=== PATIENT | male | born 1980 | race Caucasian/White ===

== ENCOUNTER 2022-01-26 09:10 | Inpatient (IN) | payer OTHER ==
[2022-01-26 09:59] VITALS: BMI 30.1
[2022-01-26] MEDS ORDERED: ACETAMINOPHEN 325 MG TABLET (FP) PO PRN ×2 (10:01)
[2022-01-26] MEDS ORDERED: ONDANSETRON *ODT* 4 MG TABLET SL PRN (10:01)
[2022-01-26] MEDS ORDERED: DICYCLOMINE HCL 10 MG CAPSULE PO PRN (10:01)
[2022-01-26] MEDS ORDERED: BUPRENORPHINE HCL 150 MCG, BUPRENORPHINE HCL 75 MCG BC PRN (10:01)
[2022-01-26] MEDS ORDERED: LOPERAMIDE HCL 2 MG CAPSULE PO PRN (10:01)
[2022-01-26] MEDS ORDERED: MAG HYDROX/AL HYDROX/SIMETH 30 ML UNIT-DOSE CUP PO PRN (10:01)
[2022-01-26] MEDS ORDERED: MAGNESIUM CITRATE 300 ML BOTTLE PO PRN (10:01)
[2022-01-26] MEDS ORDERED: BENZOCAINE/MENTHOL (CHLORASEPTIC ) LOZENGE MM PRN (10:01)
[2022-01-26] MEDS ORDERED: IBUPROFEN 400 MG TABLET (FP) PO PRN (10:01)
[2022-01-26] MEDS ORDERED: BISMUTH SUBSALICYLATE 524 MG/30 ML PO PRN (10:01)
[2022-01-26] MEDS ORDERED: MAGNESIUM HYDROX 2400MG/30ML ORAL SUSPENSION 30 ML CUP PO PRN (10:01)
[2022-01-26] MEDS: THIAMINE HCL 100 MG TABLET (FP) PO SCH (10:09)
[2022-01-26] MEDS ORDERED: BUPRENORPHINE HCL 150 MCG FILM BC ONE (10:22)
[2022-01-26] MEDS ORDERED: BUPRENORPHINE HCL 75 MCG FILM BC ONE (10:22)
[2022-01-26] MEDS: NICOTINE 7 MG/24 HOURS TOPICAL PATCH TD SCH (10:28)
[2022-01-26] MEDS ORDERED: BUPRENORPHINE HCL 150 MCG, BUPRENORPHINE HCL 75 MCG BC ONE (10:30)
[2022-01-26] MEDS ORDERED: cloNIDine HCL 0.1 MG TABLET PO ONE (10:30)
[2022-01-26] MEDS: METHOCARBAMOL 500 MG TABLET PO PRN (11:43)
[2022-01-26] MEDS: PRENATAL VITAMINS W/ FOLIC ACID TABLET (FP) PO SCH (11:43)
[2022-01-26] MEDS: IBUPROFEN 600 MG TABLET (FP) PO PRN (11:43)
[2022-01-26] MEDS: hydrOXYzine PAMOATE 25 MG CAPSULE (FP) PO SCH ×3 (13:47→22:08)
[2022-01-26] MEDS: diazePAM 5 MG TABLET PO PRN (13:48)
[2022-01-26] MEDS ORDERED: cloNIDine HCL 0.1 MG TABLET PO PRN (14:01)
[2022-01-26] MEDS: NICOTINE 10 MG CARTRIDGE (INHALER) IH PRN ×2 (14:48→22:11)
[2022-01-26] MEDS ORDERED: MELATONIN 5 MG TABLETS PO SCH (22:00)
[2022-01-26] MEDS: SUVOREXANT 10 MG TABLET PO PRN (22:09)
[2022-01-27] MEDS ORDERED: BUPRENORPHINE HCL 150 MCG, BUPRENORPHINE HCL 75 MCG BC PRN
[2022-01-27] MEDS ORDERED: BUPRENORPHINE HCL 150 MCG FILM BC ONE ×2 (04:39→17:12)
[2022-01-27] MEDS ORDERED: BUPRENORPHINE HCL 75 MCG FILM BC ONE ×2 (04:40→17:13)
[2022-01-27] MEDS: hydrOXYzine PAMOATE 25 MG CAPSULE (FP) PO SCH ×5 (05:29→22:27)
[2022-01-27] MEDS: BUPRENORPHINE HCL 150 MCG, BUPRENORPHINE HCL 75 MCG BC SCH ×2 (05:29→17:59)
[2022-01-27] MEDS: diazePAM 5 MG TABLET PO PRN ×3 (07:49→19:01)
[2022-01-27] MEDS: METHOCARBAMOL 500 MG TABLET PO PRN ×2 (10:27→22:27)
[2022-01-27] MEDS: NICOTINE 7 MG/24 HOURS TOPICAL PATCH TD SCH (10:27)
[2022-01-27] MEDS: PRENATAL VITAMINS W/ FOLIC ACID TABLET (FP) PO SCH (10:27)
[2022-01-27] MEDS ORDERED: ALBUTEROL SO4 HFA INHALER IH PRN (15:10)
[2022-01-27] MEDS: THIAMINE HCL 100 MG TABLET (FP) PO SCH (22:27)
[2022-01-27] MEDS: SUVOREXANT 10 MG TABLET PO PRN (22:28)
[2022-01-28] MEDS: diazePAM 5 MG TABLET PO PRN ×4 (02:35→23:41)
[2022-01-28] MEDS: hydrOXYzine PAMOATE 25 MG CAPSULE (FP) PO SCH ×5 (05:11→22:24)
[2022-01-28] MEDS: BUPRENORPHINE HCL 450 MCG FILM BC SCH ×2 (05:11→17:31)
[2022-01-28] MEDS: PRENATAL VITAMINS W/ FOLIC ACID TABLET (FP) PO SCH (10:17)
[2022-01-28] MEDS: METHOCARBAMOL 500 MG TABLET PO PRN (10:17)
[2022-01-28] MEDS: NICOTINE 7 MG/24 HOURS TOPICAL PATCH TD SCH (10:18)
[2022-01-28] MEDS ORDERED: diazePAM 5 MG TABLET PO SCH (10:30)
[2022-01-28 11:49] LABS: HEMATOCRIT 42.8 % (35.4-49); HEMOGLOBIN 14.7 GM/dL (11.7-16.9); MCH 29.7 pg (25.7-33.7); MCHC 34.4 g/dl (32.0-35.9); MEAN CELL VOLUME 86.2 fl (80-96); MEAN PLT VOLUME 7.5 fl (7.5-11.1); PLATELET COUNT 243 10^3/uL (134-434); RBC 4.96 M/mm3 (4.00-5.60); RDW 12.7 % (11.9-15.9); WHITE BLOOD COUNT 7.2 K/mm3 (4.0-10.0)
[2022-01-28 12:47] LABS: CALCIUM 8.9 mg/dL (8.5-10.1)
[2022-01-28 12:48] LABS: BLOOD UREA NITROGEN 8.4 mg/dL (7-18)
[2022-01-28 12:51] LABS: CREATININE 0.6 mg/dL (0.55-1.3)
[2022-01-28 12:52] LABS: BILIRUBIN,TOTAL 0.4 mg/dL (0.2-1); TOT PROT 7.1 g/dl (6.4-8.2)
[2022-01-28] MEDS ORDERED: SUVOREXANT 15 MG TABLET PO PRN (22:00)
[2022-01-28] MEDS: THIAMINE HCL 100 MG TABLET (FP) PO SCH (22:24)
[2022-01-29] MEDS: IBUPROFEN 600 MG TABLET (FP) PO PRN ×2 (02:06→08:48)
[2022-01-29] MEDS: hydrOXYzine PAMOATE 25 MG CAPSULE (FP) PO SCH ×2 (05:30→10:31)
[2022-01-29] MEDS: diazePAM 5 MG TABLET PO PRN (05:32)
[2022-01-29] MEDS ORDERED: BUPRENORPHINE/NALOXONE 4 MG/1 MG FILM PACKET SL SCH (06:00)
[2022-01-29] MEDS: METHOCARBAMOL 500 MG TABLET PO PRN (08:48)
[2022-01-29 09:45] VITALS: BP 159/77; PULSE 99; TEMP 98.7
[2022-01-29] MEDS: PRENATAL VITAMINS W/ FOLIC ACID TABLET (FP) PO SCH (10:31)
[2022-01-29] MEDS: NICOTINE 7 MG/24 HOURS TOPICAL PATCH TD SCH (10:32)
[2022-01-29 14:26] LABS: HIV INTERPRETATION NEGATIVE (NEGATIVE)
[2022-01-30] MEDS ORDERED: BUPRENORPHINE/NALOXONE 8 MG/2 MG FILM PACKET SL ONE (06:00)
== END 2022-01-29 11:40 | disposition home or self-care (01) | DRG 773 ==
LOC: YASAS 09:10 → Y6N 11:00
PROVIDERS: ADMIT Allergy & Immunology; ATTEND Surgery
PROC: HZ2ZZZZ Detoxification Services for Substance Abuse Treatment (ICD-10-PCS; principal; 2022-01-26)
DX: F11.23 Opioid dependence with withdrawal (principal); F12.20 Cannabis dependence, uncomplicated; F17.210 Nicotine dependence, cigarettes, uncomplicated; F32.9 Major depressive disorder, single episode, unspecified; G47.00 Insomnia, unspecified; J45.909 Unspecified asthma, uncomplicated; M79.2 Neuralgia and neuritis, unspecified; M54.50 Low back pain, unspecified; G89.29 Other chronic pain; Z56.0 Unemployment, unspecified; Z59.00 Homelessness unspecified
CPT/HCPCS: 36415; 80053; 85027; 86780; 87389; C9803-CS; J0735; Q0162; U0003; U0005

== ENCOUNTER 2022-06-22 15:52 | Inpatient (IN) | payer OTHER ==
[2022-06-22 18:25] VITALS: BMI 31.7
[2022-06-22] MEDS ORDERED: MAG HYDROX/AL HYDROX/SIMETH 30 ML UNIT-DOSE CUP PO PRN (19:06)
[2022-06-22] MEDS ORDERED: BISMUTH SUBSALICYLATE 524 MG/30 ML PO PRN (19:06)
[2022-06-22] MEDS ORDERED: BENZOCAINE/MENTHOL (CHLORASEPTIC ) LOZENGE MM PRN (19:06)
[2022-06-22] MEDS ORDERED: NICOTINE 10 MG CARTRIDGE (INHALER) IH PRN (19:06)
[2022-06-22] MEDS ORDERED: MAGNESIUM HYDROX 2400MG/30ML ORAL SUSPENSION 30 ML CUP PO PRN (19:06)
[2022-06-22] MEDS ORDERED: LOPERAMIDE HCL 2 MG CAPSULE PO PRN (19:06)
[2022-06-22] MEDS ORDERED: ONDANSETRON *ODT* 4 MG TABLET SL PRN (19:06)
[2022-06-22] MEDS ORDERED: POLYETHYLENE GLYCOL (HEALTHYLAX) 3350 17 GM PACKET PO PRN (19:06)
[2022-06-22] MEDS ORDERED: ACETAMINOPHEN 325 MG TABLET (FP) PO PRN ×2 (19:06)
[2022-06-22] MEDS ORDERED: DICYCLOMINE HCL 10 MG CAPSULE PO PRN (19:06)
[2022-06-22] MEDS ORDERED: NALOXONE HCL (KLOXXADO) 8 MG SPRAY NS PRN (19:06)
[2022-06-22] MEDS ORDERED: methaDONE HCL 10 MG TABLET (FOR DETOX USE ONLY) PO ONE (19:06)
[2022-06-22] MEDS ORDERED: ALBUTEROL SO4 HFA INHALER IH PRN (19:15)
[2022-06-22] MEDS ORDERED: chlordiazePOXIDE HCL 25 MG CAPSULE PO STA (19:16)
[2022-06-22] MEDS ORDERED: chlordiazePOXIDE HCL 25 MG CAPSULE ONE (19:26)
[2022-06-22] MEDS ORDERED: methaDONE HCL 10 MG TABLET (FOR DETOX USE ONLY) ONE (19:27)
[2022-06-22] MEDS ORDERED: ONDANSETRON *ODT* 4 MG TABLET ONE (19:27)
[2022-06-22] MEDS: PRENATAL VITAMINS W/ FOLIC ACID TABLET (FP) PO SCH (21:02)
[2022-06-22] MEDS ORDERED: MELATONIN 5 MG TABLETS PO SCH (22:00)
[2022-06-22] MEDS: THIAMINE HCL 100 MG TABLET (FP) PO SCH (22:08)
[2022-06-22] MEDS: IBUPROFEN 400 MG TABLET (FP) PO PRN (22:09)
[2022-06-22] MEDS: chlordiazePOXIDE HCL 25 MG CAPSULE PO SCH (22:10)
[2022-06-23] MEDS: chlordiazePOXIDE HCL 25 MG CAPSULE PO SCH ×4 (05:10→22:11)
[2022-06-23] MEDS: IBUPROFEN 600 MG TABLET (FP) PO PRN ×2 (05:10→16:37)
[2022-06-23] MEDS: METHOCARBAMOL 500 MG TABLET PO PRN ×3 (05:10→19:09)
[2022-06-23] MEDS: PRENATAL VITAMINS W/ FOLIC ACID TABLET (FP) PO SCH (10:14)
[2022-06-23 11:14] LABS: HEMATOCRIT 40.4 % (35.4-49); MCH 29.7 pg (25.7-33.7); MCHC 34.7 g/dl (32.0-35.9); MEAN CELL VOLUME 85.5 fl (80-96); MEAN PLT VOLUME 7.7 fl (7.5-11.1); PLATELET COUNT 237 10^3/uL (134-434); RBC 4.72 M/mm3 (4.00-5.60); RDW 12.7 % (11.9-15.9); WHITE BLOOD COUNT 5.7 K/mm3 (4.0-10.0)
[2022-06-23 11:59] LABS: CALCIUM 8.8 mg/dL (8.5-10.1)
[2022-06-23 12:00] LABS: ALBUMIN 3.8 g/dl (3.4-5.0)
[2022-06-23 12:03] LABS: CREATININE 0.8 mg/dL (0.55-1.3)
[2022-06-23 12:06] LABS: BILIRUBIN,TOTAL 0.7 mg/dL (0.2-1); TOT PROT 6.6 g/dl (6.4-8.2)
[2022-06-23] MEDS: cloNIDine HCL 0.1 MG TABLET PO PRN (12:58)
[2022-06-23] MEDS: THIAMINE HCL 100 MG TABLET (FP) PO SCH (22:10)
[2022-06-23] MEDS: SUVOREXANT 15 MG TABLET PO PRN (22:12)
[2022-06-24] MEDS: IBUPROFEN 600 MG TABLET (FP) PO PRN ×2 (04:38→14:58)
[2022-06-24] MEDS: METHOCARBAMOL 500 MG TABLET PO PRN ×3 (05:40→22:08)
[2022-06-24] MEDS: chlordiazePOXIDE HCL 25 MG CAPSULE PO SCH ×4 (05:45→22:07)
[2022-06-24] MEDS: cloNIDine HCL 0.1 MG TABLET PO PRN ×3 (07:58→17:06)
[2022-06-24] MEDS ORDERED: methaDONE HCL 10 MG TABLET (FOR DETOX USE ONLY) PO ONE (10:00)
[2022-06-24] MEDS: PRENATAL VITAMINS W/ FOLIC ACID TABLET (FP) PO SCH (10:04)
[2022-06-24] MEDS: LIDOCAINE 5% TOPICAL PATCH TP SCH (12:57)
[2022-06-24] MEDS: THIAMINE HCL 100 MG TABLET (FP) PO SCH (22:07)
[2022-06-24] MEDS: SUVOREXANT 15 MG TABLET PO PRN (22:08)
[2022-06-24] MEDS: LIDOCAINE PATCH REMOVAL MC SCH (22:08)
[2022-06-24] MEDS: diphenhydrAMINE HCL 50 MG CAPSULE PO PRN (22:09)
[2022-06-25] MEDS: METHOCARBAMOL 500 MG TABLET PO PRN ×3 (03:45→17:22)
[2022-06-25] MEDS: chlordiazePOXIDE HCL 10 MG CAPSULE PO SCH ×4 (05:55→22:18)
[2022-06-25] MEDS: IBUPROFEN 600 MG TABLET (FP) PO PRN ×2 (05:57→22:17)
[2022-06-25] MEDS: PRENATAL VITAMINS W/ FOLIC ACID TABLET (FP) PO SCH (10:39)
[2022-06-25] MEDS: LIDOCAINE 5% TOPICAL PATCH TP SCH (10:42)
[2022-06-25] MEDS: hydrOXYzine PAMOATE 25 MG CAPSULE (FP) PO PRN (14:52)
[2022-06-25 17:48] VITALS: RESP 18
[2022-06-25] MEDS: diphenhydrAMINE HCL 50 MG CAPSULE PO PRN (22:17)
[2022-06-25] MEDS: THIAMINE HCL 100 MG TABLET (FP) PO SCH (22:17)
[2022-06-25] MEDS: SUVOREXANT 15 MG TABLET PO PRN (22:18)
[2022-06-25] MEDS: LIDOCAINE PATCH REMOVAL MC SCH (22:19)
[2022-06-26] MEDS: hydrOXYzine PAMOATE 25 MG CAPSULE (FP) PO PRN (03:49)
[2022-06-26] MEDS: IBUPROFEN 400 MG TABLET (FP) PO PRN (03:49)
[2022-06-26] MEDS: METHOCARBAMOL 500 MG TABLET PO PRN (03:49)
[2022-06-26] MEDS ORDERED: chlordiazePOXIDE HCL 10 MG CAPSULE PO SCH (05:00)
[2022-06-26 09:31] VITALS: BP 110/60; PULSE 75; TEMP 97.1
[2022-06-26] MEDS ORDERED: methaDONE HCL 10 MG TABLET (FOR DETOX USE ONLY) PO ONE (10:00)
[2022-06-26] MEDS ORDERED: NALOXONE HCL (KLOXXADO) 8 MG SPRAY NS ONE (10:15)
[2022-06-26] MEDS: LIDOCAINE 5% TOPICAL PATCH TP SCH (10:55)
[2022-06-26] MEDS: PRENATAL VITAMINS W/ FOLIC ACID TABLET (FP) PO SCH (10:56)
[2022-06-27] MEDS ORDERED: chlordiazePOXIDE HCL 10 MG CAPSULE PO ONE (05:00)
== END 2022-06-26 10:00 | disposition home or self-care (01) | DRG 773 ==
LOC: YASAS 15:52 → Y6N 19:39
PROVIDERS: ADMIT Allergy & Immunology; ATTEND Surgery
PROC: HZ2ZZZZ Detoxification Services for Substance Abuse Treatment (ICD-10-PCS; principal; 2022-06-22)
DX: F11.23 Opioid dependence with withdrawal (principal); F13.230 Sedative, hypnotic or anxiolytic dependence with withdrawal, uncomplicated; F12.20 Cannabis dependence, uncomplicated; F17.210 Nicotine dependence, cigarettes, uncomplicated; F32.9 Major depressive disorder, single episode, unspecified; F19.24 Other psychoactive substance dependence with psychoactive substance-induced mood disorder; F19.282 Other psychoactive substance dependence with psychoactive substance-induced sleep disorder; F19.280 Other psychoactive substance dependence with psychoactive substance-induced anxiety disorder; J45.909 Unspecified asthma, uncomplicated; G47.00 Insomnia, unspecified; M54.59 Other low back pain; G89.29 Other chronic pain; M79.2 Neuralgia and neuritis, unspecified; E66.9 Obesity, unspecified; Z68.31 Body mass index [BMI] 31.0-31.9, adult; Z87.438 Personal history of other diseases of male genital organs; Z91.013 Allergy to seafood; Z56.0 Unemployment, unspecified; Z59.00 Homelessness unspecified
CPT/HCPCS: 36415; 80053; 82140; 85027; 86780; C9803-CS; Q0162; U0003; U0005